=== PATIENT | female | born 1990 | race Caucasian/White ===

== ENCOUNTER 2020-12-05 06:12 | Inpatient (IN) | payer OTHER ==
[~2020-12-05 06:12] MED LIST: ASPIRIN EC81 M1 PO; COLACE100 MG PO; FEOSOL325 MG PO; MOTRIN600 MG PO; OMEPRAZOLE40 MG PO; PERCOCET 5-3251 EACH PO; ZOFRAN4 MG PO
[2020-12-05 07:22] LABS: HCT 36.5 % (37.0-47.0); HGB 11.7 g/dl (12.5-16.0); MCH 27.3 pg (25.0-31.0); MCHC 32.1 g/dL (32.0-36.0); MCV 85.1 fL (78.0-100.0); MPV 11.2 fL (6.0-9.5); RBC 4.29 M/uL (4.20-5.40); WBC 8.4 K/uL (4.0-10.5)
[2020-12-05 09:14] LABS: BILIRUBIN NEGATIVE (NEGATIVE); BLOOD NEGATIVE Ery/uL (NEGATIVE); CLARITY CLEAR (CLEAR); COLOR YELLOW (YELLOW); GLUCOSE (U) NORMAL (NORMAL); LEUKOCYTES NEGATIVE Leu/uL (NEGATIVE); NITRITE NEGATIVE (NEGATIVE); PROTEIN NEGATIVE (NEGATIVE); SPECIFIC GRAVITY 1.015 (1.001-1.030); UROBILINOGEN 0.2 mg/dL (0.2-1.0)
[2020-12-06 06:43] LABS: HCT 27.6 % (37.0-47.0); HGB 8.8 g/dl (12.5-16.0); MCH 27.1 pg (25.0-31.0); MCHC 31.9 g/dL (32.0-36.0); MCV 84.9 fL (78.0-100.0); MPV 10.5 fL (6.0-9.5); RBC 3.25 M/uL (4.20-5.40); RDW 13.9 % (11.5-14.0); WBC 11.2 K/uL (4.0-10.5)
== END 2020-12-07 12:40 | disposition home or self-care (01) | DRG 787 ==
LOC: FOB 06:12 → FMS 08:00 → FOB 12-07 12:40
PROVIDERS: ADMIT Obstetrics & Gynecology
PROC: 10D00Z1 Extraction of Products of Conception, Low, Open Approach (ICD-10-PCS; principal; 2020-12-05 08:00)
DX: O34.211 Maternal care for low transverse scar from previous cesarean delivery (principal); D62 Acute posthemorrhagic anemia; O40.3XX0 Polyhydramnios, third trimester, not applicable or unspecified; Z37.0 Single live birth; Z3A.37 37 weeks gestation of pregnancy; O99.03 Anemia complicating the puerperium; O99.214 Obesity complicating childbirth; O24.429 Gestational diabetes mellitus in childbirth, unspecified control; Z20.822 Contact with and (suspected) exposure to COVID-19; O46.8X3 Other antepartum hemorrhage, third trimester
CPT/HCPCS: 36415; 81003; 82947; J0456; J0690; J1100; J1885; J2274; J2370; J2405; J2916; J7050; J7120; U0002